=== PATIENT | female | born 1960 | race Caucasian/White ===

== ENCOUNTER 2018-07-08 08:00 | Outpatient (CLI) | payer MEDICARE ==
--- NOTE | 2018-07-08 10:50 | ULT ---
THYROID ULTRASOUND: HISTORY: Follow nodule. COMPARISON: 01/05/2018 TECHNIQUE: Sagittal and transverse dominguez-scale imaging of the thyroid gland is performed. FINDINGS: There is diffuse heterogeneity throughout the thyroid gland. The thyroid isthmus measures 0.2 cm. T he right thyroid lobe measures 2.4 x 0.7 x 1 cm. The left thyroid lobe measures 2.6 x 0.9 x 0.9 cm. There is a solid echotexture nodule in the mid portion of the right thyroid lobe, measuring 0.4 x 0.4 x 1.2 cm. Previously, this nodule was reported to be 1.3 x 0.4 x 0.6 cm. There is a second hypoech oic lesion in the lower pole of the right thyroid lobe, measuring 0.3 x 0.3 x 0.2 cm. There is a hypoechoic focus at the lateral aspect of the left thyroid lobe, measuring 0.3 x 0.3 cm. There is a solid nodule in the mid portion of the left thyroid lobe, measuring 0.5 x 0.5 x 1.2 cm. P reviously, this nodule also measured 0.5 x 1.2 x 0.6 cm. IMPRESSION: Essentially stable nodules throughout the left and right thyroid lobe. TI-RADS calculator score of T R3. Follow-up imaging in one year. POS: ALANA
== END 2018-07-08 08:01 | disposition home or self-care (01) ==
LOC: NAV ULT 08:00
PROVIDERS: ATTEND Family Medicine
DX: E04.2 Nontoxic multinodular goiter (principal)
CPT/HCPCS: 76536